=== PATIENT | female | born 1955 | race Caucasian/White ===

== ENCOUNTER → 2017-02-18 | Outpatient (CLI) | payer OTHER ==
[~2017-02-18] MED LIST: AMIT50TA PO; ASPI-496 PO; CALC-471 PO; DICL50TA4 PO; GLIM4TAB2 PO; INSU100I7 SQ-INSULIN; LIDOCAINE 1%, 20ML ONE; LOSA50TA6 PO; LOVA40TA2 PO; METF850T2 PO; METO50TA4 PO; OMEP-110 PO; OXYC1TAB7 PO; SODIUM BICARBONATE 4.2%, 5ML ONE
== END | disposition home or self-care (01) ==
LOC: RAD 09:30
PROVIDERS: ATTEND Surgery
DX: Z01.818 Encounter for other preprocedural examination (principal); E04.2 Nontoxic multinodular goiter
CPT/HCPCS: 76942; 88173; J3490

== ENCOUNTER → 2017-04-23 | Outpatient (CLI) | payer OTHER | END | disposition home or self-care (01) | LOC: RAD 12:39 | PROVIDERS: ATTEND Surgery | DX: E04.1 Nontoxic single thyroid nodule (principal) | CPT/HCPCS: 76942; 88172; 88173; J3490 ==

== ENCOUNTER → 2017-10-23 | Outpatient (CLI) | payer OTHER ==
[~2017-10-23] MED LIST changes: -LIDOCAINE 1%, 20ML ONE; -SODIUM BICARBONATE 4.2%, 5ML ONE
== END | disposition home or self-care (01) ==
LOC: CFH 15:49
PROVIDERS: ATTEND Nurse Practitioner Family
DX: M43.16 Spondylolisthesis, lumbar region (principal); M47.897 Other spondylosis, lumbosacral region; M51.26 Other intervertebral disc displacement, lumbar region; M48.061 Spinal stenosis, lumbar region without neurogenic claudication; S39.012S Strain of muscle, fascia and tendon of lower back, sequela; X58.XXXS Exposure to other specified factors, sequela
CPT/HCPCS: 72148

== ENCOUNTER → 2020-09-26 | Outpatient (CLI) | payer OTHER ==
[~2020-09-26] MED LIST changes: -GLIM4TAB2 PO; +GLIM4TAB8 PO; +LOSA50TA14 PO; -LOSA50TA6 PO; +METF850T10 PO; -METF850T2 PO
== END | disposition home or self-care (01) ==
LOC: CVU 09:49
PROVIDERS: ATTEND Nurse Practitioner Family
DX: I08.2 Rheumatic disorders of both aortic and tricuspid valves (principal)
CPT/HCPCS: 93306